=== PATIENT | male | born 1985 | race Caucasian/White ===

== ENCOUNTER 2018-03-21 13:03 | Emergency (ER) | payer MEDICAID ==
[~2018-03-21] VITALS: Ht 188 cm; Wt 93.0 kg
[2018-03-21 14:29] VITALS: BP 146/82
[2018-03-21 15:10] LABS: Urine WBC None Seen /hpf (0 - 3)
[2018-03-21 16:04] LABS: Urine Bacteria NONE SEEN /hpf (None Seen); Urine Blood Negative /uL (Negative); Urine Specific Gravity 1.008 (1.001-1.035)
== END 2018-03-21 18:04 | disposition home or self-care (01) ==
LOC: ER 13:03
DX: M54.5 Low back pain (principal); F41.9 Anxiety disorder, unspecified; F12.10 Cannabis abuse, uncomplicated; Z88.8 Allergy status to other drugs, medicaments and biological substances
CPT/HCPCS: 72100; 81001